=== PATIENT | female | born 1980 | race Caucasian/White ===

== ENCOUNTER 2016-12-29 09:06 | Emergency (ER) | payer OTHER ==
[~2016-12-29] VITALS: Ht 152.4 cm; Wt 90.9 kg
[~2016-12-29 09:06] MED LIST: GABA-502 PO; HYDR-4003 PO; IBUP200T48 PO
[2016-12-29 09:09] VITALS: BP 132/93; PULSE 114; RESP 18; O2SAT 98
--- NOTE | 2016-12-29 09:19 | ED.REPORT ---
HPI-Abd Pain F Under 40 Date of Service Dec 29, 2016 ED Provider: Ronald Lopez MD A 36 year old female with a history of diverticulitis, H. pylori infection and UTI is referred to the ED by Urgent Care due to vomiting. The pt began experiencing nausea, vomiting and diarrhea five hours after eating dinner on . These symptoms have continued since, and are now accompanied by headache, abdominal pain, back pain, fever and chills. She denies hematemesis, dysuria or hematochezia. Her family is experiencing similar symptoms with lower severity. The pt believes that her symptoms may be due to food poisoning. Nursing Notes Stated Complaint: VOMITING/SENT BY URGENT CARE Chief Complaint: Female Abdominal Pain Nursing Notes Reviewed: Yes Allergies: Coded Allergies: No Known Allergies (Verified , 12/29/16) Scheduled Gabapentin (Gabapentin) 300 Mg Capsule 300 MG PO AM-1200-HS Scheduled PRN Hydrocodone-Acetaminophen 5-325 mg (Hydrocodone-Acetaminophen 5-325 mg) 1 Each Tablet 1 EACH PO Q8 PRN PRN For Pain Ibuprofen (Ibuprofen) 200 Mg Tablet 600-800 MG PO PRN PRN PRN CRAMPS Ondansetron ODT (Zofran ODT) 4 Mg Tablet 4 MG PO Q4H PRN PRN For Nausea General Time Seen by MD: 09:12 Chief Complaint Other (Vomiting) Hx Obtained From: Patient Arrived By: Walk-in Sudden in Onset?: No Onset Occurred: 3 days ago Symptom Duration: Since onset Recent Healthcare: No recent hospitalization, Recent doctor visit Similar Sx Previous: No Past Medical History Past Medical History History of childhood asthma Admit for diverticulitis in 2007 H. pylori infection UTI Past Surgical History Tonsillectomy Reports: Carpal tunnel (right hand) Smoking History Former Smoker (quit 8 years ago) Social History Alcohol Use: "Social" Drug Use: THC Other Social History: Good social support Ambulatory Status Independent Review of Systems Constitutional: Reports: Chills, Fever Respiratory: Denies: Non-productive cough, Shortness of breath Cardiovascular: Denies: Chest pain GI: Reports: Abdominal pain, Diarrhea, Nausea, Vomiting, Denies: Hematemesis, Hematochezia Female: Denies: Dysuria Musculoskeletal: Reports: Back pain, Denies: Neck pain Complete sys rev & neg: except as marked. Neurologic: Reports: Headache Physical Exam Initial Vital Signs Vital Signs (First) Date Time Temp Pulse Resp B/P Pulse Ox O2 Delivery O2 Flow Rate FiO2 12/29/16 09:09 37.5 114 18 132/93 98 Room Air Initial VS: Reviewed General/Constitutional: Awake, Alert Respiratory / Chest: Atraumatic, No respiratory distress respirations nonlabored Cardiovascular: Heart rate NL, Regular rhythm, Heart sounds NL Abdomen: Atraumatic, Soft, No guarding, No rebound diffuse abdominal tenderness Back: Atraumatic, Full range of motion, No CVA tenderness Head / Eyes: Atraumatic, Normocephalic, PERRL, EOMI ENT: Atraumatic, Airway patent, Mucous membranes moist Skin: Atraumatic, Color NL, No rash, Warm, Dry Neurologic: Oriented X3, Speech NL, No motor deficits, No sensory deficits Neck: Atraumatic, Supple, Full range of motion Upper Extremity / MS: Atraumatic, Full range of motion Lower Extremity / Pelvis / MS: Atraumatic, Full range of motion Psychiatric: Affect NL, Mood NL Interpretation & Diagnostics Lab Results Interpretation Result Diagram: 12/29/16 0936 12/29/16 0936 Test 12/29/16 09:36 12/29/16 11:09 White Blood Count 12.0th/mm3 (3.8-10.1) Red Blood Count 4.39mil/mm3 (3.90-5.20) Hemoglobin 13.8g/dL (12.0-15.6) Hematocrit 39.7% (35.0-46.0) Mean Corpuscular Volume 90.4fL (81-100) Mean Corpuscular Hemoglobin 31.4pg (27.0-35.0) Mean Corpuscular Hemoglobin Concent 34.8% (32.0-37.0) Red Cell Distribution Width 13.8% (12.3-15.4) Platelet Count 221bil/L (150-400) Neutrophils (%) (Auto) 78.8% (40-74) Lymphocytes (%) (Auto) 14.3% (14-46) Monocytes (%) (Auto) 6.3% (4-12) Eosinophils (%) (Auto) 0.1% (0-5) Basophils (%) (Auto) 0.2% (0-3) Sodium Level 136mEq/L (134-144) Potassium Level 3.4mEq/L (3.5-5.2) Chloride Level 102mEq/L (97-108) Carbon Dioxide Level 19mmol/L (18-29) Blood Urea Nitrogen 10mg/dL (6-20) Creatinine 0.63mg/dL (0.57-1.00) Estimat Glomerular Filtration Rate 153mL/min (>59) Glucose Level 103mg/dL (60-99) Calcium Level 8.5mg/dL (8.5-10.1) Magnesium Level 1.7mg/dL (1.6-2.6) Total Bilirubin 0.3mg/dL (0.0-1.2) Aspartate Amino Transf (AST/SGOT) 15U/L (0-50) Alanine Aminotransferase (ALT/SGPT) 16U/L (0-32) Alkaline Phosphatase 64U/L (25-150) Total Protein 7.2g/dL (6.4-8.4) Albumin 3.6g/dL (3.4-5.0) Lipase 14U/L (13-60) Hold Cobb Top Tube Received (Received) Urine Color Yellow (YELLOW) Urine Appearance Clear (CLEAR,HAZY) Urine pH 6.0 (5.0-8.0) Urine Specific [place] 1.023 (1.003-1.035) Urine Protein Tracemg/dL (NEG,TRACE) Urine Glucose (UA) Negativemg/dL (NEGATIVE) Urine Ketones Negativemg/dL (NEGATIVE) Urine Occult Blood Small (NEGATIVE) Urine Nitrite Negative (NEGATIVE) Urine Bilirubin Negative (NEGATIVE) Urine Urobilinogen Normalmg/dL (NORMAL) Urine Leukocyte Esterase Negative (NEGATIVE) Urine RBC 0-2/hpf (0-2) Urine WBC 0-5/hpf (0-5) Urine Epithelial Cells Many/hpf (NONE-MOD) Urine Crystals None seen (NONE SEEN) Urine Bacteria Few/hpf (NONE-FEW) Urine Hyaline Casts None/lpf (NONE) Urine Granular Casts None seen (NONE SEEN) Urine Waxy Casts None seen (NONE SEEN) Urine Red Blood Cell Casts None seen (NONE SEEN) Urine White Blood Cell Casts None seen (NONE SEEN) Urine Mucus None seen (None Seen) Urine Trichomonas None seen (NONE SEEN) Urine Yeast None (NONE SEEN) Urinalysis Comment None Urine Culture Reflexed Not indicated Re-Eval/Medical Decision Med Decision/Clinical Course Med Decision/Clinical Course: 36-year-old female presenting with nausea vomiting diarrhea 4 days. She had no episodes here. She was given 2 L normal saline and felt much better. Her labs are unremarkable. Urine was negative for infection. Her repeat abdominal exam was soft nontender on repeat exam and requested to go home. Likely viral gastroenteritis. She was unable to give us a stool sample. She was sent home with a stool collection kit. Return precautions given. Source of Hx: Old records Re-Evaluation/Progress : Time of Eval: 11:33 Patient Status: Condition improved Re-Evaluation/Progress Note: Pt rechecked, whose condition has significantly improved. The diagnosis and plan for discharge are discussed. The pt understands and agrees with the plan. All questions are addressed at this time. Counseled Regarding: Diagnosis, Lab results, Need for follow-up, When/why to return to ED Discharge & Departure Primary Impression: Gastroenteritis Disposition: Home Discharge Condition All VS Reviewed: Yes Condition: Stable Patient Instructions: Gastroenteritis (ED) Additional Instructions: Thank you for entrusting us with your care. Your evaluation was reassuring and there does not appear to be a dangerous cause for your symptoms. Rest and stay hydrated. Take Zofran as directed for nausea. Call your primary care physician to arrange a follow up appointment in the next several days. Return to the emergency department if you develop any new or worsening symptoms including worsening pain, intractable vomiting, or fever. Referrals: Gerson Hart MD (PCP) Scribe Attestation Portions of this note were transcribed by Toñito Frias. I, Dr. Lopez personally performed the history, physical exam and medical decision-making; I reviewed and confirmed the accuracy of the information in the transcribed note. copies to: Gerson Hart MD, Ben M MD Dec 29, 2016 09:19 TOÑITO FRIAS Dec 29, 2016 09:26
[2016-12-29] MEDS ORDERED: 0.9% Sodium Chloride 1,000 ML IV ONE ×2 (09:25→11:00)
[2016-12-29] MEDS ORDERED: Ondansetron 2 mg/mL 2 mL Inj IVPUSH PRN (09:25)
[2016-12-29] MEDS ORDERED: MetoCLOpramide 5 mg/mL 2 mL Inj IVPUSH ONE (09:25)
[2016-12-29 10:02] LABS: BASOPHILS % (AUTO) 0.2 % (0-3); EOSINOPHILS % (AUTO) 0.1 % (0-5); MONOCYTES % (AUTO) 6.3 % (4-12); Mean Corpuscular Hemoglobin 31.4 pg (27.0-35.0); Mean Corpuscular Volume 90.4 fL (81-100); NEUTROPHILS % (AUTO) 78.8 % (40-74); Platelet Count 221 bil/L (150-400)
[2016-12-29 10:28] LABS: Magnesium 1.7 mg/dL (1.6-2.6)
[2016-12-29] MEDS ORDERED: ONDA4TAB9 PO (11:38)
[2016-12-29 11:54] VITALS: BP 122/86; PULSE 88; RESP 20; O2SAT 98
[2016-12-29 12:14] LABS: APPEARANCE,URINE CLEAR (CLEAR,HAZY); COLOR,URINE YELLOW (YELLOW); OCCULT BLOOD,URINE SMALL (NEGATIVE); UROBILINOGEN,URINE NORMAL (NORMAL)
== END 2016-12-29 11:55 | disposition home or self-care (01) ==
LOC: SED 09:06
DX: K52.9 Noninfective gastroenteritis and colitis, unspecified (principal); R50.9 Fever, unspecified; Z87.440 Personal history of urinary (tract) infections; Z90.89 Acquired absence of other organs; Z87.891 Personal history of nicotine dependence
CPT/HCPCS: 36415; 80053; 81000; 81025; 83690; 83735; 85025; 96361; 96374; 96375; 99285; J1885; J2270; J2405; J2765; J7030